=== PATIENT | male | born 1940 | race Caucasian/White ===

== ENCOUNTER 2018-12-11 13:35 | Emergency (ER) | payer MEDICARE, OTHER ==
[~2018-12-11] VITALS: Ht 175.3 cm; Wt 63.0 kg
[2018-12-11 13:44] VITALS: BP 154/90
--- NOTE | 2018-12-11 14:24 | NUR ---
TASK RN: PT REPORTS URINARY RETENTION X LAST NIGHT. LAST NORMAL URINATION LAST NIGHT AT 2200. PT ALSO CO CONSTIPATION, LBM TWO DAYS AGO, "THAT ISN'T NOT NORMAL FOR ME". PT DENIES BLOOD IN URINE/FLANK PAIN/N/V/FEVER. HX OF ENLARGED PROSTATE, "BUT ANOTHER DOCTOR TOOK A LOOK AT ME AND SAID I DIDN'T HAVE AN ENLARGED PROSTATE". BLADDER SCAN COMPLETE, >999ML. ERP AWARE. VERBAL ORDER RECEIVED FOR BARLOW. 12F COUDE TIP BARLOW INSERTED WO DIFFICULTY W/ IMMEDIATE URINE RETURN. 700ML OUT. PT W/ IMMEDIATE RELIEF. UA COLLECTED AWAITING ORDER TO SEND TO LAB.
[2018-12-11 14:54] LABS: MICROSCOPIC AUTO
[2018-12-11 14:57] LABS: CULTURE INDICATED? NO
[2018-12-11 15:12] LABS: ALBUMIN 3.5 g/dL (3.4-5.0); ANION GAP 8 mmol/L (5-15); CALCIUM 11.5 mg/dL (8.5-10.1); CHLORIDE 107 mmol/L (98-107)
[2018-12-11 15:13] LABS: BASOPHILS # (AUTO) 0.03 x10^3/uL (0-0.1); BASOPHILS % (AUTO) 0 % (0-1); CREATININE 0.75 mg/dL (0.7-1.3); EOSINOPHILS # (AUTO) 0.01 x10^3/uL (0-0.4); EOSINOPHILS % (AUTO) 0 % (1-7); LYMPHOCYTES # (AUTO) 0.66 x10^3/uL (1-3.4); LYMPHOCYTES % (AUTO) 5 % (22-44); MD NO; MEAN CORPUSCULAR HEMOGLOBIN 31.5 pg (27.5-34.5); MEAN CORPUSCULAR HGB CONC 33.8 g/dL (33.2-36.2); MEAN CORPUSCULAR VOLUME 93.1 fL (81-97); MEAN PLATELET VOLUME 9.4 fL (7.4-10.4); MONOCYTES # (AUTO) 0.29 x10^3/uL (0.2-0.8); MONOCYTES % (AUTO) 2 % (2-9); NEUTROPHILS # (AUTO) 13.52 x10^3/uL (1.8-6.8); NEUTROPHILS % (AUTO) 93 % (42-75); PLATELET COUNT 214 x10^3/uL (130-400); RED BLOOD COUNT 5.18 x10^6/uL (4.38-5.82); RED CELL DISTRIBUTION WIDTH 13.3 % (9.4-14.8)
== END 2018-12-11 15:34 | disposition home or self-care (01) ==
LOC: ED 15:28
DX: N40.1 Benign prostatic hyperplasia with lower urinary tract symptoms (principal); R33.8 Other retention of urine
CPT/HCPCS: 36415; 51702; 80048; 81001; 82040; 85025; 99284

== ENCOUNTER 2018-12-13 00:34 | Emergency (ER) | payer MEDICARE ==
[~2018-12-13] VITALS: Ht 175.3 cm; Wt 62.1 kg
[2018-12-13 00:37] VITALS: BP 126/73
--- NOTE | 2018-12-13 00:51 | NUR ---
PT PRESENTED WITH LEAKING BARLOW CATHETER THAT WAS PLACED HERE AT [facility] SATURDAY. PT STATES THAT URINE IS LEAKING AROUND THE CATHETER. ERP AT BEDSIDE FOR EVAL
--- NOTE | 2018-12-13 01:04 | NUR ---
REMOVED 10CC SALINE FROM BARLOW, BARLOW CATH D/C'D, URINE SAMPLE SENT
[2018-12-13 01:11] LABS: CULTURE INDICATED? YES; MICROSCOPIC INDICATED
== END 2018-12-13 01:33 | disposition home or self-care (01) ==
LOC: ED 00:57
DX: R10.2 Pelvic and perineal pain (principal); T83.098D Other mechanical complication of other urinary catheter, subsequent encounter
CPT/HCPCS: 81001; 87086; 99283

== ENCOUNTER 2019-07-28 14:19 | Emergency (ER) | payer MEDICARE ==
[~2019-07-28] VITALS: Ht 175.3 cm; Wt 61.3 kg
--- NOTE | 2019-07-28 14:29 | NUR ---
TASK RN: Pt ambulaes from triage to room with steady gait and balance. NADN. No obvious defecits observed.
--- NOTE | 2019-07-28 14:40 | NUR ---
TASK RN: First contact with pt. Pt states, "It started at 3:30 this morning. I can dribble a little and that helps relieve some of the pressure, but I am not really peeing. I have had this happen before." NADN. Bladder scan shows >878mL of urine. Call light within reach. Pt denies blood in urine, stool, n/v/d, sob, cp, trauma, or syncope.
--- NOTE | 2019-07-28 15:13 | NUR ---
BARLOW INSERTED USING UTILIZATION MANAGEMENT NURSE 16 COUDE, IMMEDIATLEY RECEIVED 850CC OF CLEAR YELLOW URINE,UA TO LAB
[2019-07-28 15:30] LABS: BASOPHILS # (AUTO) 0.02 x10^3/uL (0-0.1); BASOPHILS % (AUTO) 0 % (0-1); EOSINOPHILS # (AUTO) 0.02 x10^3/uL (0-0.4); EOSINOPHILS % (AUTO) 0 % (1-7); LYMPHOCYTES # (AUTO) 1.06 x10^3/uL (1-3.4); LYMPHOCYTES % (AUTO) 8 % (22-44); MD NO; MEAN CORPUSCULAR HEMOGLOBIN 32.4 pg (27.5-34.5); MEAN CORPUSCULAR HGB CONC 33.4 g/dL (33.2-36.2); MEAN CORPUSCULAR VOLUME 96.9 fL (81-97); MEAN PLATELET VOLUME 8.7 fL (7.4-10.4); MONOCYTES # (AUTO) 0.36 x10^3/uL (0.2-0.8); MONOCYTES % (AUTO) 3 % (2-9); NEUTROPHILS # (AUTO) 11.57 x10^3/uL (1.8-6.8); NEUTROPHILS % (AUTO) 89 % (42-75); PLATELET COUNT 197 x10^3/uL (130-400); RED BLOOD COUNT 4.96 x10^6/uL (4.38-5.82)
[2019-07-28 15:31] LABS: MICROSCOPIC NOT IND
[2019-07-28 15:40] LABS: CULTURE INDICATED? NO
[2019-07-28 15:41] LABS: ALBUMIN 3.5 g/dL (3.4-5.0); ANION GAP 6 mmol/L (5-15); CALCIUM 11.2 mg/dL (8.5-10.1); CHLORIDE 105 mmol/L (98-107); CREATININE 0.79 mg/dL (0.7-1.3)
--- NOTE | 2019-07-28 16:34 | NUR ---
BARLOW CARE INSTRUCTION GIVEN, LEG BAG AND CLEANING AND EMPTYING. PT VERBALZIED UNDERSTANDING WILL FOLLOW UP WITH UROLOGY
[2019-07-28 16:35] VITALS: BP 119/80
== END 2019-07-28 16:37 | disposition home or self-care (01) ==
LOC: ED 16:08
DX: N40.1 Benign prostatic hyperplasia with lower urinary tract symptoms (principal); R33.8 Other retention of urine; F17.200 Nicotine dependence, unspecified, uncomplicated
CPT/HCPCS: 36415; 51702; 80048; 81003; 82040; 85025; 99284

== ENCOUNTER 2020-02-21 11:30 | Emergency (ER) | payer MEDICARE ==
[~2020-02-21] VITALS: Ht 175.3 cm; Wt 59.3 kg
[2020-02-21 12:15] LABS: BASOPHILS # (AUTO) 0.04 x10^3/uL (0-0.1); BASOPHILS % (AUTO) 0 % (0-1); EOSINOPHILS # (AUTO) 0.01 x10^3/uL (0-0.4); EOSINOPHILS % (AUTO) 0 % (1-7); LYMPHOCYTES # (AUTO) 0.76 x10^3/uL (1-3.4); LYMPHOCYTES % (AUTO) 7 % (22-44); MD NO; MEAN CORPUSCULAR HEMOGLOBIN 31.2 pg (27.5-34.5); MEAN CORPUSCULAR HGB CONC 33.1 g/dL (33.2-36.2); MEAN CORPUSCULAR VOLUME 94.4 fL (81-97); MEAN PLATELET VOLUME 9.1 fL (7.4-10.4); MONOCYTES # (AUTO) 0.38 x10^3/uL (0.2-0.8); MONOCYTES % (AUTO) 4 % (2-9); NEUTROPHILS # (AUTO) 9.22 x10^3/uL (1.8-6.8); NEUTROPHILS % (AUTO) 89 % (42-75); PLATELET COUNT 210 x10^3/uL (130-400); RED BLOOD COUNT 5.25 x10^6/uL (4.38-5.82); RED CELL DISTRIBUTION WIDTH 13.4 % (9.4-14.8)
[2020-02-21 12:25] LABS: ALBUMIN 3.8 g/dL (3.4-5.0); ANION GAP 7 mmol/L (5-15); CALCIUM 11.6 mg/dL (8.5-10.1); CHLORIDE 106 mmol/L (98-107); CREATININE 0.73 mg/dL (0.7-1.3)
--- NOTE | 2020-02-21 12:27 | NUR ---
pt presents to ED with c/o urinary retention since yesterday pm, pt states he hx urinary retention/recinos placement in the past, pt states he has been prescribed meds for urinary retention but did not fill rx as he was fearful of listed side effects. pt states he has had difficulty with urine leaking around recinos in past, this RN placed 18F coude recinos cath with EDMD's ok. Clear yellow urine draining freely from recinos at this time with no leakage. urine sample collected from recinos placement, sent to lab. awaiting lab results and dispo at this time.
[2020-02-21 12:49] LABS: MICROSCOPIC AUTO
[2020-02-21 12:51] LABS: CULTURE INDICATED? NO
[2020-02-21 13:15] VITALS: BP 112/65
--- NOTE | 2020-02-21 13:17 | NUR ---
pt reports bladder pressure relieved, approx 1000mL total clear yellow urine drained from recinos bag. aware. pt given dc instructions with instructions to call urologist on dc paperwork for follow up appt. pt given education regarding recinos cleaning/maintenance. pt ambulatory to dc desk with steady gait, all questions answered.
== END 2020-02-21 13:18 | disposition home or self-care (01) ==
LOC: ED 12:25
DX: N40.1 Benign prostatic hyperplasia with lower urinary tract symptoms (principal); R33.8 Other retention of urine; E83.52 Hypercalcemia
CPT/HCPCS: 36415; 51702; 80048; 81001; 82040; 85025; 99284

== ENCOUNTER 2020-11-12 12:47 | Emergency (ER) | payer MEDICARE ==
[~2020-11-12] VITALS: Ht 172.7 cm; Wt 54.5 kg
--- NOTE | 2020-11-12 13:15 | NUR ---
PATIENT AMBULATED TO RADIOLOGY WITH TECH.
--- NOTE | 2020-11-12 13:31 | NUR ---
PATIENT RETURNED FROM RADIOLOGY, AMBULATING UNASSISTED.
[2020-11-12 13:47] LABS: MEAN CORPUSCULAR HGB CONC 33.6 g/dL (33.2-36.2); PLATELET COUNT 470 x10^3/uL (130-400); RED BLOOD COUNT 5.25 x10^6/uL (4.38-5.82); RED CELL DISTRIBUTION WIDTH 12.2 % (9.4-14.8)
[2020-11-12 14:00] LABS: ALANINE AMINOTRANSFERASE 19 U/L (12-78); ANION GAP 3 mmol/L (5-15); CALCIUM 13.4 mg/dL (8.5-10.1); CHLORIDE 101 mmol/L (98-107); CREATININE 1.02 mg/dL (0.7-1.3)
[2020-11-12 14:04] LABS: ALKALINE PHOSPHATASE 114 U/L (45-117); BILIRUBIN,TOTAL 0.5 mg/dL (0.2-1.0); TOTAL PROTEIN 8.4 g/dL (6.4-8.2); TROPONIN I < 0.015 ng/mL (0.000-0.045)
[2020-11-12 14:07] LABS: MD YES
[2020-11-12 14:09] LABS: BAND#(MANUAL) 0.94 x10^3/uL; BANDS%(MANUAL) 4 % (0-7); LYMPH#(MANUAL) 2.12 x10^3/uL (1-3.4); LYMPHS% (MANUAL) 9 % (22-44); METAMYELOCYTES# (MANUAL) 0.24 x10^3/uL (0-0); METAMYELOCYTES% (MANUAL) 1 % (0-1); MONOS#(MANUAL) 1.65 x10^3/uL (0.3-2.7); MONOS% (MANUAL) 7 % (2-9); SEG#(MANUAL) 18.57 x10^3/uL (1.8-6.8); SEGS% (MANUAL) 79 % (42-75)
[2020-11-12 14:10] LABS: <PLATELET ESTIMATE> INCREASED; <RBC MORPHOLOGY> NORMAL
[2020-11-12 14:11] LABS: <PLT MORPHOLOGY> NORMAL PLT MORPH
[2020-11-12] MEDS ORDERED: CEFTRIAXONE PMX 1GM/50ML 50 ML IV ONE (15:00)
[2020-11-12] MEDS ORDERED: AZITHROMYCIN 500 MG in SODIUM CHLORIDE 0.9% 250 ML IV ONE (15:00)
[2020-11-12] MEDS ORDERED: CEFTRIAXONE PMX 1GM/50ML 50 ML ONE (15:29)
[2020-11-12 18:20] VITALS: BP 106/71
== END 2020-11-12 18:23 | disposition home or self-care (01) ==
LOC: ED 14:45
DX: J15.9 Unspecified bacterial pneumonia (principal); F17.220 Nicotine dependence, chewing tobacco, uncomplicated; F17.210 Nicotine dependence, cigarettes, uncomplicated; R00.1 Bradycardia, unspecified
CPT/HCPCS: 36415; 71250; 74022; 80053; 84484; 85025; 87040; 93005; 96365; 96366; 96368; 99285; 99406; J0456; J0696; J7050